=== PATIENT | male | born 1935 | race Caucasian/White ===

== ENCOUNTER 2016-10-13 18:05 | Inpatient (IN) | payer OTHER, MEDICARE ==
[2016-10-13] MEDS ORDERED: NS 1,000 ML IV ONE (18:13)
--- NOTE | 2016-10-13 18:16 | EDPHY ---
H & P Time Seen by Provider: 10/13/16 18:10 HPI/ROS: Chief complaint. Altered mental status HPI. 80-year-old male here by EMS after a welfare check was performed by [employer]. Apparently the patient had not been seen or talked to for 4 days. The police report no signs of forced entry. Television was on. The patient was lying on the floor. He is not responsive to verbal stimuli. He does not speak. Apparently he speaks with son each day and the son had not heard from him in several days so called [employer] ROS--unable as the patient does not speak Past Medical/Surgical History: Past medical history is gleaned from his old chart which shows coronary artery disease, aortic valve replacement, mitral valve replaced air repair, atrial fibrillation, diabetes, hypertension, dyslipidemia, hernia repair, sleep apnea, carotid end arterectomy Social History: Obtained from old chart and apparently the patient had been but there is no family with him so he may well be . Does not sound like he smokes cigarettes or drinks much alcohol from his old record Physical Exam: General Appearance: Awake, nonverbal male moderate distress. Vitals are stable Eyes: Pupils equal and round no pallor or injection. ENT, dry mucous membranes Respiratory: No retractions. Rales on the right Cardiovascular: Irregularly irregular rate and rhythm Gastrointestinal: Abdomen is soft and nontender, no masses, bowel sounds normal. Neurological: Patient has some tail board worker strength to both hands. Moves feet spontaneously. Responds to questions with nonsensical replies Skin: Warm and dry, no rashes. Musculoskeletal: Neck is restrained per EMS Extremities some range of motion of all extremities Psychiatric: Patient is nonverbal Constitutional: Initial Vital Signs Heart Rate 87 10/13/16 18:21 Respiratory Rate 16 10/13/16 18:21 Blood Pressure 159/104 H 10/13/16 18:21 O2 Sat (%) 96 10/13/16 18:21 O2 Delivery Mode Nasal Cannula O2 (L/minute) 4 Allergies/Adverse Reactions: doxazosin mesylate [From Cardura] Allergy (Verified 10/13/16 19:44) PALPITATIONS Sulfa (Sulfonamide Antibiotics) Allergy (Verified 10/13/16 19:44) GI UPSET zolpidem tartrate [From Ambien] Allergy (Verified 11/18/12 10:19) RASH/HIVES Medical Decision Making - Diagnostics EKG Interpretation: EKG interpreted by me shows atrial fibrillation with normal axis. QRS is is normal there is ST elevationV2 and V3. Rate is 84 Imaging: Noncontrast CT head shows a subacute left middle cerebral artery infarct consistent with 4-day-old. There is some overlying hemorrhages well. Cervical spine shows degeneration but no trauma One-view chest x-ray shows probable aspiration pneumonia Procedures: IV normal saline, monitor ED Course/Re-evaluation: Consult with and discussion with Dr. Rangel, hospitalist. We agree to reverse some of the Coumadin and the patient is given IV vitamin K and 1 unit of FFP Consult and discussion with Dr. Villegas, neurosurgery Consult and discussion with Neurology Son arrives from [place] and I reviewed the findings a imaging studies , treatment plan with the son Patient is given a 2nd L of saline. Differential Diagnosis: I believe the likely this started as a ischemic CVA [address] is consistent with a subacute left middle cerebral artery infarct. There is now secondary hemorrhage. Minimal mass effect. It appears the patient has an aspiration pneumonia. He has positive troponin and elevated CK suggestive of rhabdomyolysis. Critical Care Time: critical care time exclusive of procedures 45 minutes - Data Points Laboratory Results: Laboratory Results 10/13/16 18:21 10/13/16 18:21 10/13/16 10/13/16 10/13/16 19:00 18:21 18:11 WBC 9.30 10^3/uL (3.80-9.50) RBC 6.47 H 10^6/uL (4.40-6.38) Hgb 21.6 H* g/dL (13.7-17.5) POC Hgb 22.4 H* gm/dL (14.5-17.3) Hct 63.0 H* % (40.0-51.0) POC Hct 66 H* % (42.8-50.6) MCV 97.4 fL (81.5-99.8) MCH 33.4 pg (27.9-34.1) MCHC 34.3 g/dL (32.4-36.7) RDW 16.3 H % (11.5-15.2) Plt Count 126 L 10^3/uL (150-400) MPV 10.7 fL (8.7-11.7) Neut % (Auto) 69.2 % (39.3-74.2) Lymph % (Auto) 15.5 % (15.0-45.0) [place] % (Auto) 13.9 H % (4.5-13.0) Eos % (Auto) 0.8 % (0.6-7.6) Baso % (Auto) 0.4 % (0.3-1.7) Nucleat RBC Rel Count 0.0 % (0.0-0.2) Absolute Neuts (auto) 6.44 10^3/uL (1.70-6.50) Absolute Lymphs (auto) 1.44 10^3/uL (1.00-3.00) Absolute Monos (auto) 1.29 H 10^3/uL (0.30-0.80) Absolute Eos (auto) 0.07 10^3/uL (0.03-0.40) Absolute Basos (auto) 0.04 10^3/uL (0.02-0.10) Absolute Nucleated RBC 0.00 10^3/uL (0-0.01) Immature Gran % 0.2 % (0.0-1.1) Immature Gran # 0.02 10^3/uL (0.00-0.10) PT 22.3 H SEC (12.0-15.0) INR 1.94 H (0.83-1.16) APTT 45.9 H SEC (23.0-38.0) POC Sodium 146 H mEq/L (134-144) Sodium 144 mEq/L (134-144) POC Potassium 4.0 mEq/L (3.3-5.0) Potassium 4.4 mEq/L (3.5-5.2) POC Chloride 101 mEq/L (96-108) Chloride 100 mEq/L (97-110) Carbon Dioxide 29 mEq/l (22-31) Anion Gap 15 mEq/L (8-16) POC BUN 12 mg/dL (7-23) BUN 11 mg/dL (7-23) Creatinine 0.6 L mg/dL (0.7-1.3) POC Creatinine 0.7 L mg/dL (0.8-1.5) Estimated GFR > 60 Glucose 106 H mg/dL (70-100) POC Glucose 112 H mg/dL (70-100) Calcium 9.5 mg/dL (8.5-10.4) Creatine Kinase 1061 H IU/L (0-224) CK-MB (CK-2) Fraction 16.90 H ng/mL (0-4.55) CK-MB (CK-2) % 1.6 % (0.0-4.0) Creatine Kinase Interp NEGATIVE (NEGATIVE) Troponin I 0.045 H ng/mL (0-0.034) NT-Pro-B Natriuret Pep 1930 H pg/mL (0-450) Medications Given: Discontinued Medications Sodium Chloride (Ns) 1,000 mls @ 0 mls/hr IV EDNOW ONE PRN Reason: Wide Open Stop: 10/13/16 18:14 Last Admin: 10/13/16 18:37 Dose: 1,000 mls Point of Care Test Results: 10/13/16 18:11 POC Sodium 146 H POC Potassium 4.0 POC Chloride 101 POC BUN 12 POC Creatinine 0.7 L POC Glucose 112 H Departure - Departure Disposition: [facility] Inpatient Acute Clinical Impression: Elevated troponin CVA (cerebral vascular accident) Qualifiers: CVA mechanism: embolism Precerebral and cerebral artery: middle cerebral artery Laterality of affected vessel: left Qualifier Code: (I63.412) Cerebral infarction due to embolism of left middle cerebral artery Aspiration pneumonia Qualifiers: Aspiration pneumonia type: unspecified Laterality: right Rhabdomyolysis Qualifiers: Rhabdomyolysis type: traumatic Encounter type: initial encounter Qualifier Code : (T79.6XXA) Traumatic ischemia of muscle, initial encounter Condition: Critical
--- NOTE | 2016-10-13 18:20 | CPEKG ---
Heart Rate: 84 RR Interval: 714 QRSD Interval: 94 QT Interval: 416 QTC Interval: 492 QRS [place]: 90 T Wave [place]: 219 EKG Severity - ABNORMAL ECG - EKG Impression: ATRIAL FIBRILLATION EKG Impression: LOW VOLTAGE IN FRONTAL LEADS EKG Impression: CONSIDER ANTEROSEPTAL INFARCT EKG Impression: NONSPECIFIC T ABNORMALITIES, DIFFUSE LEADS EKG Impression: BORDERLINE PROLONGED QT INTERVAL Electronically Signed By: Raj Gupta 13-Oct-2016 21:14:22
[2016-10-13 18:29] LABS: % IMMATURE GRANULYOCYTES 0.2 % (0.0-1.1); ABSOLUTE IMMATURE GRANULOCYTES 0.02 10^3/uL (0.00-0.10); ADD DIFF? NO; ADD MORPH? NO; ADD SCAN? NO; ATYPICAL LYMPHOCYTE FLAG 10 (0-99); FRAGMENT RBC FLAG 0 (0-99); LEFT SHIFT FLG 0 (0-99); LIPEMIA HEMOLYSIS FLAG 90 (0-99); MEAN CELL HEMOGLOBIN 33.4 pg (27.9-34.1); MEAN CELL HEMOGLOBIN CONCENTR. 34.3 g/dL (32.4-36.7); MEAN CELL VOLUME 97.4 fL (81.5-99.8); MEAN PLATELET VOLUME 10.7 fL (8.7-11.7); PLATELET CLUMPS FLAG 0 (0-99); PLATELET COUNT 126 10^3/uL (150-400); RED BLOOD CELL COUNT 6.47 10^6/uL (4.40-6.38); RED CELL DISTRIBUTION WIDTH 16.3 % (11.5-15.2)
[2016-10-13 18:38] LABS: HEMOGLOBIN 21.6 g/dL (13.7-17.5)
[2016-10-13 19:05] LABS: ANION GAP 15 mEq/L (8-16); CALCIUM 9.5 mg/dL (8.5-10.4); CARBON DIOXIDE 29 mEq/l (22-31); CHLORIDE 100 mEq/L (97-110); CREATININE 0.6 mg/dL (0.7-1.3); GLOMERULAR FILTRATION RATE > 60; GLUCOSE 106 mg/dL (70-100); POTASSIUM 4.4 mEq/L (3.5-5.2); SODIUM 144 mEq/L (134-144)
[2016-10-13 19:15] LABS: INR 1.94 (0.83-1.16); PROTIME(PATIENT) 22.3 SEC (12.0-15.0)
[2016-10-13 19:16] LABS: APTT 45.9 SEC (23.0-38.0)
[2016-10-13 19:17] LABS: TROPONIN I 0.045 ng/mL (0-0.034)
--- NOTE | 2016-10-13 19:23 | CT ---
Unenhanced CT Scan of the Brain and Cervical Spine Clinical History: 80-year-old male who was found down at home, and is responsive to pain. A history w as not obtainable otherwise. The patient has been on Coumadin. Rule out acute intracranial or acute c ervical osseous abnormality. Technique: Standard unenhanced axial CT images were acquired from the skull base to the skull vertex, reformatted at 5.00 and 1.50 mm increments, and reviewed at a variety of window/level settings. The DFOV is 25 cm. Subsequently, a multidetector unenhanced helical CT scan was obtained from the level o f the clivus to the caudal margin of T2 with images reformatted at 1.50 mm increments and reviewed in bone, soft tissue, and lung windows. The DFOV is 14.8 cm. Parasagittal and paracoronal reconstructed images of the brain and cervical spine are also provided. A dose reduction protocol was used. Comparison Study: None. Findings: UNENHANCED CT SCAN OF THE BRAIN: There is vasogenic edema with developing encephalomalacia, consisten t with a subacute area of infarction along the left middle cerebral artery territory. Specifically, t here is diminished attenuation involving the left temporal lobe, the left basal ganglia, the left cor carmen radiata, and the subcortical aspect adjacent to left occipital horn. Additionally, there is a rou nded focus of increased attenuation at the head of the left caudate nucleus, measuring 1.3 x 1.6 cm ( transverse diameter) x 1.4 cm (cephalocaudal diameter), most suggestive of an area of hypertensive in traparenchymal hemorrhage. There is effacement of a portion of the lateral aspect of the left frontal horn. There is no significant subfalcine herniation in this patient with rather extensive underlying cerebral cortical atrophy. There are also areas of diminished attenuation in the subgaleal spaces bi laterally, right greater than left, with a Hounsfield unit measurement of 16-22, suggesting some poss ible seromatous material. There is no skull fracture appreciated. There is opacification of the right frontal sinus, with some chronic mucosal thickening in the floor of the left frontal sinus to the le sergo of the frontoethmoidal recesses. There is also chronic mucosal thickening associated with the rig ht and left ethmoids, minimally involving the sphenoid sinus, and also involving the right and left m axillary sinuses. The mastoids are notable for some left-sided inflammatory change, with no osseous d isruption. There is atherosclerotic calcification of the cavernous carotid arteries. The temporomandi bular joints are anatomically-aligned. The zygomatic arches are intact, as are the orbital rims. The craniocervical junction, sella turcica, and calcified pineal gland are unremarkable. Impression: 1. There is a subacute left middle cerebral artery territory infarction. 2. There is focal hemorrhagic infarct involving the head of left caudate nucleus, with some mass effe ct on the lateral margin of the left frontal horn. 3. Suspect bilateral subgaleal seromas. There is no evidence of a subdural hematoma. 4. Advanced senescent features with cerebral cortical atrophy and chronic microvascular ischemic glio sis. 5. Chronic paranasal sinus mucosal thickening, as well as some inflammation of the left mastoids. UNENHANCED CT SCAN OF THE CERVICAL SPINE: There is straightening of the normal cervical lordosis, whi ch may be secondary to recumbent positioning or reflecting some underlying muscle spasm. The vertebra l body heights are maintained. There is trace C4 posterolisthesis above C5, with a dorsal disk osteop hyte complex observed. Ventral traction spurs are noted from C3-C7. There is mild degenerative disk s pace narrowing at C3-C4, C4-C5, C5-C6, and at C6-C7. There is no acute fracture or facet malalignment . The interspinous distances are appropriate. The craniocervical junction appears normal. There is so me degenerative osseous hypertrophy involving C1 with some narrowing of the predental space and calci fication of the posterior alar ligament. This slightly effaces the ventral thecal sac, however, does not result in significant canal stenosis. The visualized prevertebral soft tissues are normal. There appears to be some pleural fluid posteriorly near the left lung apex with a Hounsfield unit measureme nt of -19. At the C2-C3 level, there is some disk calcification. There is a mild degree of facet hypertrophy. Th ere is no central canal or neural foraminal stenosis. At the C3-C4 level, there is mild degenerative disk space narrowing with some partial disk calcificat ion. There is facet hypertrophy and uncovertebral osteophyte formation, particularly on the right jannette e, resulting in moderate right neural foraminal stenosis. The central canal and left neural foramen a re relatively patent. At the C4-C5 level, there is degenerative disk space narrowing. There is a dorsal disk osteophyte com plex resulting in mild central canal stenosis. Facet hypertrophy is noted, right greater than left, a nd there is a mild degree of left neural foraminal stenosis. At the C5-C6 level, there is degenerative disk space narrowing, facet hypertrophy, and uncovertebral osteophyte formation, resulting in moderate right and [id number]-wsdcakfy left neural foraminal stenosis . There is patency of the central canal. At the C6-C7 level, there is degenerative disk space narrowing of mild degree, with ventral and dorsa l traction osteophytes. There is mild central canal stenosis and uncovertebral osteophyte formation, resulting in moderate left and mild right neural foraminal stenosis. The C7-T1 level is notable only for some mild facet hypertrophy. There is some mild broad-based circu mferential disk bulging, resulting in mild central canal stenosis. The neural foramina are relatively patent. Impression: Multilevel degenerative changes, as above-detailed, with no acute cervical osseous abnorm ality. If there is further clinical concern regarding the patient's symptoms, MR imaging could be considered , if otherwise not contraindicated. Results were discussed with Dr. Raj Gupta. A test result has been communicated to a licensed care provider and documented in [employer], 6:56:34 PM , 10/13/2016, [employer] Message ID [id number].
[2016-10-13] MEDS ORDERED: ERTAPENEM 1 GM in NS 100 ML IV ONE (19:25)
[2016-10-13] MEDS ORDERED: PHYTONADIONE 10 MG in NS 50 ML IV ONE (19:29)
--- NOTE | 2016-10-13 19:48 | DX ---
Portable AP Upright Chest October 13, 2016 at 7:19 p.m. Clinical History: 80-year-old male on Coumadin, found down and unresponsive with a head CT revealing an intracranial hemorrhage and a left MCA territory infarct. Comparison Study: Chest, dated February 21, 2010. Findings: Oxygen tubing and telemetry monitoring lead lines are present. The cardiac silhouette remai ns enlarged, and there is dense mitral annular calcification. The patient has had prior median sterno destini and an aortic valvuloplasty. There is mural calcification of the aortic knob. Perihilar bronchia l wall thickening and pulmonary vascular congestion suggests some fluid overload and cardiac decompen sation. There is some focal alveolar edema versus a developing infiltrate in the right infrahilar reg ion, and possibly in the left retrocardiac region. Impression: 1. Sequela of prior sternotomy and aortic valvuloplasty with cardiomegaly and pulmonary vascular irais estion. 2. Alveolar edema versus developing pneumonia in the medial lower lung zones.
[2016-10-13 19:54] LABS: CK-MB INTERPRETATION NEGATIVE (NEGATIVE)
[2016-10-13] MEDS ORDERED: HYDROmorphONE/DILAUDID 1 MG/ML SYR IVP PRN (20:04)
[2016-10-13] MEDS ORDERED: ONDANSETRON 4 MG/2 ML VIAL IVP PRN (20:04)
--- NOTE | 2016-10-13 20:09 | NEUROPROG ---
Assessment: Case reviewed via telephone with Dr. Gupta. CT reviewed. Subacute LMCA infarct with a round/well circumscribed left BG hemorrhage ( likely hypertensive given location/morphology) Hourly neurosurveillance Keep SBP < 160 INR goal < 1.5 Functional Plt count > 50k Holding antiplatelet/anticoagulants Keep well hydrated Avoid hypoglycemia - ideal BS 140-180 GI prophylaxis SCDs Seizure precautions - no antiseizure prophylaxis necessary for now Repeat CT head wo tomorrow afternoon Full consult tomorrow Objective: Vital Signs Temp Pulse Resp BP Pulse Ox 87 16 159/104 H 93 10/13/16 18:21 10/13/16 18:21 10/13/16 18:21 10/13/16 19:04 PT 22.3 SEC (12.0-15.0) H 10/13/16 19:00 INR 1.94 (0.83-1.16) H 10/13/16 19:00 Allergies/Adverse Reactions: doxazosin mesylate [From Cardura] Allergy (Verified 10/13/16 19:44) PALPITATIONS Sulfa (Sulfonamide Antibiotics) Allergy (Verified 10/13/16 19:44) GI UPSET zolpidem tartrate [From Ambien] Allergy (Verified 11/18/12 10:19) RASH/HIVES
--- NOTE | 2016-10-13 21:08 | GHP ---
[f rep st] HISTORY AND PHYSICAL DATE OF ADMISSION: 10/13/2016 HISTORY OF PRESENT ILLNESS: The patient is an 80-year-old gentleman with a history of atrial fibrill ation, aortic valve replacement with bovine valve, and coronary artery disease who was brought here b y EMS after their welfare check by the [employer], he had not been seen supposedly for 4 days. The patient was found lying on the floor and unresponsive to verbal stimuli. In the emerge ncy department, a noncontrast head CT was performed showing a subacute left MCA territory infarction, focal hemorrhage involving the head of the left caudate nucleus, some mass effect on the lateral mar gin of the left frontal horn as well as senescent features with cervical cortical atrophy and chronic microvascular ischemic gliosis. When I speak with the patient, he is unable to mouth words but they are indecipherable. I am not alli e if this represents word salad versus a gentleman with severely crusted mouth from being on the grou nd for 4 days. He is unable to name a stethoscope although he attempts to. He is able to follow com mands and squeeze hands demonstrating weakness on the right, but global weakness as well. He appears to deny pain or chest pain or shortness of breath. REVIEW OF SYSTEMS: Complete 10-point review of systems attempted but unable to be achieved given his current mental status. PAST MEDICAL HISTORY: Coronary artery disease status post bypass, aortic valve replacement with biop rosthetic valve, mitral valve with repair, atrial fibrillation, diabetes, hypertension, dyslipidemia, hernia repair, sleep apnea, carotid endarterectomy. SOCIAL HISTORY: He lives alone. He speaks with his son frequently who I believe lives out of town. According to the old record of tobacco use and alcohol use are non-issues. ALLERGIES: Doxazosin, sulfa and Ambien. MEDICATIONS: Unclear at this time, other than warfarin. PHYSICAL EXAM: VITAL SIGNS: He is afebrile. Blood pressure 169/104, pulse 87, breathing 16 times a minute, and 96% on 4 L. GENERAL: In no acute distress. HEENT: His eyes are crusted. He has a lo t of dried stuff in his mouth. NECK: In a hard collar. LUNGS: Clear to auscultation anterolateral ly. HEART: S1 and S2. Not tachycardic. ABDOMEN: Soft, nontender, nondistended. LOWER EXTREMITIE S: Without edema. NEUROLOGIC: Shows 2/5 strength on the right, 3/5 strength on the left. He is ab le to follow commands. He appears to be encephalopathic. I cannot get him to say coherent things. SKIN: Without rash although I have not seen his back. STUDIES: On Labs: Sodium 144, potassium 4.4, chloride 100, bicarb 29, BUN 11, creatinine 0.6, gluco se 106. CK is 1061. Troponin 0.045. BNP is 1930. INR is 1.94. White count is 9, hematocrit is 63 with hemoglobin of 21.6. Platelets are 126. Review of prior hemoglobins show polycythemia in the s ummer of 2016. A noncontrast head CT is as reported in the emergency department. Chest x-ray, interpreted by me, sh ows evidence of prior CABG, likely right lower lobe infiltrate, without pleural effusion. EKG, interpreted by me shows atrial fibrillation at 84 with normal axis and intervals. There are T-w ave inversions in V3 through V4 and even V5. There is no prior EKG available for comparison. A C-spine CT shows degenerative joint disease with no acute osseous abnormality. I discussed the case with Dr. Raj Gupta. ASSESSMENT AND PLAN: An 80-year-old gentleman was found down after apparent large left middle cerebr al artery stroke with hemorrhagic conversion. 1. Stroke: This is likely embolic from atrial fibrillation. He does have a subtherapeutic INR. Th at is given the hemorrhagic conversion, he has reversal of his INR now. He is not a candidate for ly tics for many reasons. For the time being, we will hold his Coumadin, reverse his INR and Neurology will see him in the morning. He will be n.p.o. for the time being. We will do the secondary stroke workup as well. 2. Hemorrhagic conversion. 3. Positive troponin: Will cycle these. He does have a history of coronary disease. EKG is potent ially ischemic, although I suspect that is likely his baseline. 4. Neck in hard collar: His spine can be cleared given that he has normal CT. 5. Code status. He appears to be full, we have incomplete information on him. 6. Coronary artery disease: We will hold aspirin, will cycle his troponin. 7. Intracranial hemorrhage: Neurosurgery have been consulted. They have reviewed the scans, they t hink there is no opportunity for neurosurgical intervention. They will see him in the morning. 8. Aspiration pneumonia. This is almost certainly the cause of his infiltrates. He has been starte d on ertapenem which I will continue. Will have speech therapy see him. 9. Disposition: He is admitted to the ICU. 10. Status: Inpatient status. /[id number]/MODL
[2016-10-13] MEDS ORDERED: ALBUTEROL 3 ML DEYVIAL IH PRN (21:47)
[2016-10-13 22:07] LABS: LACGHOST ORDER
[2016-10-13] MEDS: ERTAPENEM 1 GM in NS 100 ML IV SCH (22:14)
[2016-10-13 23:33] LABS: BACTERIA TRACE /hpf (NONE SEEN); COLOR AMBER; LEUKOCYTE ESTERASE,URINE NEGATIVE (NEGATIVE); MUCUS TRACE /lpf (NONE-1+); NITRITE,URINE NEGATIVE (NEGATIVE)
[2016-10-13 23:46] LABS: TROPONIN I 0.042 ng/mL (0-0.034)
[2016-10-14 00:33] LABS: CK-MB INTERPRETATION NEGATIVE (NEGATIVE)
[2016-10-14] MEDS: NS 1,000 ML IV SCH ×2 (02:25→17:49)
[2016-10-14 04:31] LABS: % IMMATURE GRANULYOCYTES 0.3 % (0.0-1.1); ABSOLUTE IMMATURE GRANULOCYTES 0.02 10^3/uL (0.00-0.10); ADD DIFF? NO; ADD MORPH? NO; ADD SCAN? NO; ATYPICAL LYMPHOCYTE FLAG 0 (0-99); FRAGMENT RBC FLAG 0 (0-99); HEMATOCRIT 45.6 % (40.0-51.0); HEMOGLOBIN 15.3 g/dL (13.7-17.5); LEFT SHIFT FLG 0 (0-99); LIPEMIA HEMOLYSIS FLAG 80 (0-99); MEAN CELL HEMOGLOBIN 32.6 pg (27.9-34.1); MEAN CELL HEMOGLOBIN CONCENTR. 33.6 g/dL (32.4-36.7); MEAN CELL VOLUME 97.2 fL (81.5-99.8); PLATELET CLUMPS FLAG 20 (0-99); PLATELET COUNT 101 10^3/uL (150-400); RED BLOOD CELL COUNT 4.69 10^6/uL (4.40-6.38); RED CELL DISTRIBUTION WIDTH 15.1 % (11.5-15.2)
[2016-10-14 04:36] LABS: INR 1.57 (0.83-1.16); PROTIME(PATIENT) 18.8 SEC (12.0-15.0)
[2016-10-14 04:44] LABS: ANION GAP 7 mEq/L (8-16); CALCIUM 7.7 mg/dL (8.5-10.4); CARBON DIOXIDE 27 mEq/l (22-31); CHLORIDE 109 mEq/L (97-110); CHOLESTEROL 70 mg/dL (140-220); CHOLESTEROL/HDL RATIO 3.04 RATIO (1.00-4.97); CREATININE 0.6 mg/dL (0.7-1.3); GLOMERULAR FILTRATION RATE > 60; GLUCOSE 83 mg/dL (70-100); HIGH DENSITY LIPOPROTEIN 23 mg/dL (40-65); LDL/HDL RATIO 1.57 RATIO (1.00-3.64); LOW DENSITY LIPOPROTEIN 36 mg/dL (80-100); NON-HIGH DENSITY LIPOPROTEIN 47 mg/dL (90-129); POTASSIUM 3.9 mEq/L (3.5-5.2); SODIUM 143 mEq/L (134-144); TRIGLYCERIDE 59 mg/dL (40-150); VERY LOW DENSITY LIPOPROTEINS 11 mg/dL (8-25)
[2016-10-14 04:54] LABS: TROPONIN I 0.052 ng/mL (0-0.034)
[2016-10-14 05:14] LABS: CK-MB INTERPRETATION NEGATIVE (NEGATIVE)
[2016-10-14 05:21] LABS: CREATINE KINASE-MB FRACTION 6.25 ng/mL (0-3.19)
--- NOTE | 2016-10-14 08:44 | CT ---
CT Scan of the Head (Without Contrast) Clinical Indications: 80-year-old male inpatient admitted last evening with a subacute left MCA tayler tory infarct and hemorrhage at the left head of the caudate nucleus, presenting for follow-up. Technique: Axial CT images were acquired from the foramen magnum through the skull vertex without in travenous contrast. Soft tissue, subdural, and bone windows were reviewed on the computer workstatio n. Images were reformatted at 5.00 and 1.50 mm increments, and are reformatted in sagittal and coron al planes. DFOV is 25.0 cm. Dose reduction techniques were utilized. Comparison Study: Unenhanced CT scan, dated October 13, 2016 at 6:29 p.m. Findings: Again noted is increased attenuation consistent with hemorrhage at the head of the left cau date nucleus. The appearance is stable to less hyperdense, and there is extensive vasogenic edema and /or developing encephalomalacia along the left middle cerebral artery territory involving the left te mporal lobe, left basal ganglia, and the left salgado radiata with some slight mass effect on portions of the left lateral ventricle, although no subfalcine herniation. There is extensive underlying cere bral cortical atrophy with chronic microvascular ischemic gliosis. Paranasal sinus mucosal thickening is once again identified, similar in distribution involving the maxillary, ethmoid, sphenoid, and fr ontal sinuses with complete opacification of the right frontal sinus. There is also some inflammation associated with the left mastoid. There is atherosclerotic calcification of the cavernous carotid ar teries and the basilar artery. Diminished attenuation in the subgaleal spaces is less conspicuous jenni n on the previous study. Impression: The intracranial appearance of the brain is relatively stable from last evening's study, with evidence of some subacute hemorrhage at the head of left caudate nucleus and a subacute left mid dle cerebral artery territory infarct.
--- NOTE | 2016-10-14 09:24 | ECHO ---
[id number] + + [address] : : [place] [address] : : [phone] + + Adult Echocardiographic Report + ---+ :Name: CARMENKenna LEHMAN Date: 10/14/2016 07:28 AM : : Hospital Admission Number: [id number] Location: 242: :: 1935 Gender: Male : :Age: 80 yrs Race: WH Weight: 200 lb : :Reason For Study: CVA/found down : :History: CABG/AVR/MV repair : + ---+ MMode/2D Measurements & Calculations IVSd: 0.90 cm LVIDd: 4.5 cm FS: 52.1 % Ao root diam: 3.3 cm LVPWd: 0.80 cm LVIDs: 2.1 cm EDV(Teich): 91.4 ml LA dimension: 4.3 cm ESV(Teich): 15.2 ml EF(Teich): 83.3 % Normal Measurement Values: + + :LVIDd (3.5-5.7cm) IVSd (0.6-1.1cm) LVPWd (0.6-1.1cm) Aortic Root (2.0-3.7cm)Left Atrium (1.5-4.0cm): :LV Vol(d) (76-115ml) LV Vol(s) (29-48ml) Ejec Fraction (50-65%)PV Fadi (0.6- 1.2m/s) TV Fadi (0.4-1.0m/s) : :MV E Fadi (0.8-1.0m/s)MV A Fadi (0.3-1.0m/s)LVOT Fadi (0.7-1.2m/s) Asc Ao Fadi ( 0.9-1.8m/s) : + + Doppler Measurements & Calculations MV E max fadi: MV V2 max: MV P1/2t max fadi: Ao mean P.2 cm/sec 248.9 cm/sec 243.9 cm/sec 11.3 mmHg MV A max fadi: MV max PG: MV P1/2t: 145.4 msec Ao V2 mean: 167.1 cm/sec 24.8 mmHg MVA(P1/2t): 1.5 cm2 155.4 cm/sec MV E/A: 1.4 MV V2 mean: MV dec slope: Ao V2 VTI: 154.0 cm/sec 491.2 cm/sec2 49.8 cm MV mean P.7 mmHg MV V2 VTI: 89.7 cm TR max fadi: 395.9 cm/sec TR max P.7 mmHg RAP systole: 10.0 mmHg RVSP(TR): 72.7 mmHg Left Ventricle The left ventricle is normal in size. Mild concentric LVH noted. Normal to hyperdynamic LV systolic function with LVEF 65-70%. Septal motion is consistent with post-operative state. Right Ventricle A moderator band is seen in the right ventricle. Mild to moderate RV enlargement with mildly reduced RV systolic function. Atria The left atrium is moderately dilated. The right atrium is moderately dilated. The interatrial septum is intact with no evidence for an atrial septal defect. Mitral Valve MV mean PG is 10mmHG. Mild-moderate MS noted. There is mild mitral regurgitation. An annuloplasty ring is noted in the mitral position. Tricuspid Valve Normal tricuspid valve. There is moderate to severe tricuspid regurgitation. Right ventricular systolic pressure is 73mmHg. Moderate to severe pulmonary HTN noted. Aortic Valve No AI noted. There is a bioprosthetic aortic valve. AV max PG is 21mmHG. AV mean PG is 11mmHG. Pulmonic Valve The pulmonic valve is normal in structure and function. Mild PI noted. Great Vessels The aortic root is normal size. Pericardium/Pleural Trivial to mild pericardial effusion present with no tamponade physiology. Left pleural effusion. Conclusion A complete two-dimensional transthoracic echocardiogram was performed (2D, M-mode, Doppler and color flow Doppler). There is no obvious source of embolus identified. If one is highly clinically suspected, then transesophageal echocardiography should be considered. 1)Normal to hyperdynamic LV systolic function with a LVEF of 65-70%. 2)Mild concentricl LVH noted. 3)Mild-moderate RV enlargement with mildly reduced RV systolic function. 4)Moderate bi-atrial enlargement. 5)Normal functioning bioprosthetic AVR with no AI. 6)MV s/p surgical annualr ring with mild-moderate MS with mean gradient of 10mmHg and mild MR. 7)Moderate to severe TR with estimated moderate to severe pulmonary HTN (PAS 73mmHg). 8)Left pleural effusion. 9)Trivial to mild pericardial effusion with no tamponade. Final Reading Physician: Hayley Montanez signed on 10/14/2016 09:23 AM Ordering Physician: Abdi Rangel Performed By: Jasmyne Mane, MARSHACS
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
--- NOTE | 2016-10-14 10:12 | HOSPPROG ---
Hospitalist Progress Note Assessment/Plan: DIAGNOSIS: # UNRESPONSIVE # ACUTE ISCHEMIC CVA # INTRACRANIAL HEMORRHAGE # CHRONIC STABLE A FIB ON COUMADIN # RHABDOMYOLYSIS FROM BEING DOWN ON FLOOR # MULTIPLE STAGE I DECUBITUS SORES FROM BEING DOWN AT HOME # WENCKEBACH TYPE 2 HEART BLOCK PLANS: -will need to review with neurosurgery and neurology whether it is safe to at this time use prophylactic aspirin and dvt prophylaxis -continue manager monitoring -no full-dose anticoagulation at this time due to stroke with intracranial hemorrhage -close attention to blood pressure control -Check lipid panel -NPO with IV hydration for now -Dr. Jimenez and I have discussed in detail with his family the limited prognosis for this patient. However as we do not know the timing of onset of his stroke is difficult to tell where we are in the time line and to come to a prognostic assessment at this time. We will need to follow him for a at least a couple more days to see if there is any tendency toward recovery. I reviewed this patient's case in detail today with Dr. Charly Jimenez and gilbert Villegas, and also seen the patient on multidisciplinary rounds today. SUBJECTIVE: Patient is currently comatose and so no symptom assessment is available OBJECTIVE Vitals reviewed: Stable without fever ekg monitor tech, my personal review: Sinus rhythm with intermittent Wenckebach type 2 heart block. Exam: Comatose. The only response I get from him is withdrawal his hands with noxious stimulus but the fingernails. He does not respond to sternal rub. He does move all extremities. There is nothing that looks like seizure. Pupils round equal and reactive. skin warm dry color ok resps not labored lungs clear BSs heart regular abd soft nondistended nontender, bowel sounds present limbs warm, no edema iv site ok CT scan of head today in follow-up, my personal review of the images: There is significant ischemic stroke in the way of and he is were hypodensity in the left cerebral hemisphere. The area of hemorrhage noted on the initial CT is unchanged on this repeat CT. There is no significant shift. Objective: Vital Signs Temp Pulse Resp BP Pulse Ox 37.2 C 75 17 114/73 99 10/14/16 04:00 10/14/16 06:00 10/14/16 06:00 10/14/16 06:00 10/14/16 06:00 Laboratory Results 10/14/16 04:20 10/14/16 04:15 10/13/16 10/14/16 10/15/16 06:59 06:59 06:59 Intake Total 3750 Output Total 350 Balance 3400 PT 18.8 SEC (12.0-15.0) H 10/14/16 04:15 INR 1.57 (0.83-1.16) H 10/14/16 04:15 ICD10 Worksheet Patient Problems: Problems Problem Status Diagnosed Aspiration pneumonia Acute CVA (cerebral vascular accident) Acute Elevated troponin Acute Rhabdomyolysis Acute
[2016-10-14] MEDS: ALBUTEROL 3 ML DEYVIAL IH SCH ×3 (11:40→21:19)
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
--- NOTE | 2016-10-14 13:04 | PDCONSULT ---
Branch Lead Note: HOSPITAL NEUROLOGY CONSULT REQUESTING: Petey Valadez MD REASON: stroke HPI: This is an 80-year-old right-handed gentleman with a history of hypertension, hyperlipidemia, diabetes, CAD, atrial fibrillation who presented to our emergency department yesterday after being found down in his home. Patient is followed by a PDS and they had not heard from him in [address] were summoned to the patient's house and on the day of presentation they found him on the floor unresponsive in his home. He was brought to our Emergency Department and a non contrasted head CT revealed a large area of cytotoxic edema in the left MCA territory consistent with a subacute ischemic stroke. There is also a very well-circumscribed hyperdensity in the left basal ganglia consistent with a subacute hemorrhage. Patient remained unresponsive and was admitted for further stabilization and workup. He was given FFP and vitamin K in ED to reverse his INR given the intracranial hemorrhage. On the floor, he has remained unresponsive and not following commands. Son and daughter at bedside. ROS: Unobtainable from patient due to his unresponsive state ALLERGIES AND MEDS: As recorded in the EMR - reviewed and reconciled PFSH: As per the intake H&P by Dr. Valadez from 10/13/16 EXAM: GEN: WDWN man laying in bed, eyes closed, NAD HEENT: NCAT, sclera anicteric, conjunctiva not injected, MMD NECK: supple, nontender, no meningismus CV: irreg irreg, s1 s2, grade 3 systolic murmur best a RUSB NEURO: MS: eyes closed, opens briefly to nox stim, no verbal output, does not follow commands, unable to assess other higher cortical function due to coma CN: pupils 3mm round reactive. No blink to threat. Primary gaze centered. No VORs, trace spontaneous horizontal eye movements seem symmetric. Corneals intact and grimaces to nox stim of the face. Right lower facial droop apparent. MOTOR: normal bulk, paratonic throughout. He does not move spontaneously SENSORY: localizes with BUEs and withdraws in the BLEs to nox stim REFLEX: plantar extensor right, equivocal left. No clonus. DTRs 3/4 COORD/GAIT: unable to assess DATA: Labs reviewed in EMR CT head wo reviewed - left inferior MCA subacute infarct with cytotoxic edema. Left caudate subacute hemorrhage with surrounding vasogenic edema a mild mass effect on the left lateral ventricle. TTE: preserved EF, no masses, LVH/RVH, dilated atria IMPRESSION AND RECOMMENDATIONS: // SUBACUTE LMCA ISCHEMIC STROKE - CARDIOEMBOLIC // SUBACUTE LEFT CAUDATE HEMORRHAGE - LIKELY HYPERTENSIVE // COMA // RHABDOMYOLYSIS // ASPIRATION PNA // HTN // HLD // DM - UNKNOWN CONTROL // AFIB Patient found down at home with subacute LMCA stroke with superimposed left caudate hemorrhage, likely hypertensive in origin. Stroke is likely cardioembolic. He had clear changes of ischemia on his CT and remote established last known well, so not a candidate for any thrombolytic or intervention. Coma is likely explained by his caudate hemorrhage (which can result in reduced LOC, reduced attention/abulia) in addition to his PNA and large hemispheric stroke. At this point, discussion is ongoing with family regarding goals of care going forward. We discussed how he will likely be left with some degree of aphasia, visual field loss, weakness, cognitive impairment, dysphagia. This places him at risk for further aspiration, DVT, malnutrition and other medical complications. Son and daughter are at bedside. POA is son-in-law. Family is favoring DNR and comfort measures at this time, but will finalize a decision with EDER. I recommend a discussion with our Palliative Care/Hospice colleagues. In the meantime, continue with supportive measures per below: - close neurosurveillance - keep SBP < 160 - hold therapeutic antiplatelets/anticoagulants - INR goal < 1.5 - functional platelet count > 50k - avoid hypoglycemia with ideal BS goal 140-180 - keep normothermic - seizure precautions - no antiseizure drug prophylaxis at this time - keep well hydrated - SCDs - can consider DVT chemoprophylaxis with heparin 5000 units BID in 48hours - GI prophylaxis - aspiration precautions - recommend palliative/hospice consultation - family to discuss goals of care with POA today - Dr. Jarrett to assume care of the neurology service tomorrow Patient critically ill with ischemic stroke, intracranial hemorrhage and comatose state, at high risk for clinical deterioration. 55 mins CC time in direct patient care activities on the floor Temp Pulse Resp BP Pulse Ox 37.2 C 75 17 114/73 99 10/14/16 04:00 10/14/16 06:00 10/14/16 06:00 10/14/16 06:00 10/14/16 06:00 O2 (L/minute) 4 LABORATORY 10/14/16 10/14/16 10/14/16 04:20 04:15 00:05 WBC 7.19 10^3/uL (3.80-9.50) RBC 4.69 10^6/uL (4.40-6.38) Hgb 15.3 g/dL (13.7-17.5) POC Hgb Hct 45.6 D % (40.0-51.0) POC Hct MCV 97.2 fL (81.5-99.8) MCH 32.6 pg (27.9-34.1) MCHC 33.6 g/dL (32.4-36.7) RDW 15.1 % (11.5-15.2) Plt Count 101 L 10^3/uL (150-400) MPV 11.0 fL (8.7-11.7) Neut % (Auto) 64.9 % (39.3-74.2) Lymph % (Auto) 15.3 % (15.0-45.0) Whitley % (Auto) 16.6 H % (4.5-13.0) Eos % (Auto) 2.5 % (0.6-7.6) Baso % (Auto) 0.4 % (0.3-1.7) Nucleat RBC Rel Count 0.0 % (0.0-0.2) Absolute Neuts (auto) 4.67 10^3/uL (1.70-6.50) Absolute Lymphs (auto) 1.10 10^3/uL (1.00-3.00) Absolute Monos (auto) 1.19 H 10^3/uL (0.30-0.80) Absolute Eos (auto) 0.18 10^3/uL (0.03-0.40) Absolute Basos (auto) 0.03 10^3/uL (0.02-0.10) Absolute Nucleated RBC 0.00 10^3/uL (0-0.01) Immature Gran % 0.3 % (0.0-1.1) Immature Gran # 0.02 10^3/uL (0.00-0.10) PT 18.8 H SEC (12.0-15.0) INR 1.57 H (0.83-1.16) APTT VBG Lactic Acid 2.4 H mmol/L (0.7-2.1) POC Sodium Sodium 143 mEq/L (134-144) POC Potassium Potassium 3.9 mEq/L (3.5-5.2) POC Chloride Chloride 109 mEq/L (97-110) Carbon Dioxide 27 mEq/l (22-31) Anion Gap 7 mEq/L (8-16) POC BUN BUN 11 mg/dL (7-23) Creatinine 0.6 L mg/dL (0.7-1.3) POC Creatinine Estimated GFR > 60 Glucose 83 mg/dL (70-100) POC Glucose Calcium 7.7 L D mg/dL (8.5-10.4) Creatine Kinase 516 H IU/L (0-224) CK-MB (CK-2) Fraction 6.25 H ng/mL (0-3.19) CK-MB (CK-2) % 1.2 % (0.0-4.0) Creatine Kinase Interp NEGATIVE (NEGATIVE) Troponin I 0.052 H ng/mL (0-0.034) NT-Pro-B Natriuret Pep Triglycerides 59 mg/dL (40-150) Cholesterol 70 L mg/dL (140-220) Cholesterol Risk Factr 0.5 (0.2-1.0) LDL Cholesterol, Calc 36 L mg/dL (80-100) LDL Risk Factor 0.8 (0.2-1.0) VLDL Cholesterol 11 mg/dL (8-25) Non-HDL Cholesterol 47 L mg/dL (90-129) HDL Cholesterol 23 L mg/dL (40-65) LDL/HDL Ratio 1.57 RATIO (1.00-3.64) Cholesterol/HDL Ratio 3.04 RATIO (1.00-4.97) Urine Color Urine Appearance Urine pH Ur Specific [place] Urine Protein Urine Ketones Urine Blood Urine Nitrate Urine Bilirubin Urine Urobilinogen Ur Leukocyte Esterase Urine RBC Urine WBC Ur Epithelial Cells Urine Bacteria Urine Mucus Urine Glucose Patient ABO/Rh 10/13/16 10/13/16 10/13/16 22:55 22:50 21:00 WBC RBC Hgb POC Hgb Hct POC Hct MCV MCH MCHC RDW Plt Count MPV Neut % (Auto) Lymph % (Auto) Whitley % (Auto) Eos % (Auto) Baso % (Auto) Nucleat RBC Rel Count Absolute Neuts (auto) Absolute Lymphs (auto) Absolute Monos (auto) Absolute Eos (auto) Absolute Basos (auto) Absolute Nucleated RBC Immature Gran % Immature Gran # PT INR APTT VBG Lactic Acid 3.3 H mmol/L (0.7-2.1) POC Sodium Sodium POC Potassium Potassium POC Chloride Chloride Carbon Dioxide Anion Gap POC BUN BUN Creatinine POC Creatinine Estimated GFR Glucose POC Glucose Calcium Creatine Kinase 804 H IU/L (0-224) CK-MB (CK-2) Fraction 10.90 H ng/mL (0-3.19) CK-MB (CK-2) % 1.4 % (0.0-4.0) Creatine Kinase Interp NEGATIVE (NEGATIVE) Troponin I 0.042 H ng/mL (0-0.034) NT-Pro-B Natriuret Pep Triglycerides Cholesterol Cholesterol Risk Factr LDL Cholesterol, Calc LDL Risk Factor VLDL Cholesterol Non-HDL Cholesterol HDL Cholesterol LDL/HDL Ratio Cholesterol/HDL Ratio Urine Color ADRIENNE Urine Appearance CLEAR Urine pH 5.0 (5.0-7.5) Ur Specific [place] 1.018 (1.002-1.030) Urine Protein NEGATIVE (NEGATIVE) Urine Ketones 1+ H (NEGATIVE) Urine Blood 1+ H (NEGATIVE) Urine Nitrate NEGATIVE (NEGATIVE) Urine Bilirubin NEGATIVE (NEGATIVE) Urine Urobilinogen 4.0 H EU (0.2-1.0) Ur Leukocyte Esterase NEGATIVE (NEGATIVE) Urine RBC 10-15 H /hpf (0-3) Urine WBC 3-5 H /hpf (0-3) Ur Epithelial Cells TRACE /lpf (NONE-1+) Urine Bacteria TRACE H /hpf (NONE SEEN) Urine Mucus TRACE /lpf (NONE-1+) Urine Glucose NEGATIVE (NEGATIVE) Patient ABO/Rh A POSITIVE 10/13/16 10/13/16 10/13/16 19:00 18:21 18:11 WBC 9.30 10^3/uL (3.80-9.50) RBC 6.47 H 10^6/uL (4.40-6.38) Hgb 21.6 H* g/dL (13.7-17.5) POC Hgb 22.4 H* gm/dL (14.5-17.3) Hct 63.0 H* % (40.0-51.0) POC Hct 66 H* % (42.8-50.6) MCV 97.4 fL (81.5-99.8) MCH 33.4 pg (27.9-34.1) MCHC 34.3 g/dL (32.4-36.7) RDW 16.3 H % (11.5-15.2) Plt Count 126 L 10^3/uL (150-400) MPV 10.7 fL (8.7-11.7) Neut % (Auto) 69.2 % (39.3-74.2) Lymph % (Auto) 15.5 % (15.0-45.0) Whitley % (Auto) 13.9 H % (4.5-13.0) Eos % (Auto) 0.8 % (0.6-7.6) Baso % (Auto) 0.4 % (0.3-1.7) Nucleat RBC Rel Count 0.0 % (0.0-0.2) Absolute Neuts (auto) 6.44 10^3/uL (1.70-6.50) Absolute Lymphs (auto) 1.44 10^3/uL (1.00-3.00) Absolute Monos (auto) 1.29 H 10^3/uL (0.30-0.80) Absolute Eos (auto) 0.07 10^3/uL (0.03-0.40) Absolute Basos (auto) 0.04 10^3/uL (0.02-0.10) Absolute Nucleated RBC 0.00 10^3/uL (0-0.01) Immature Gran % 0.2 % (0.0-1.1) Immature Gran # 0.02 10^3/uL (0.00-0.10) PT 22.3 H SEC (12.0-15.0) INR 1.94 H (0.83-1.16) APTT 45.9 H SEC (23.0-38.0) VBG Lactic Acid POC Sodium 146 H mEq/L (134-144) Sodium 144 mEq/L (134-144) POC Potassium 4.0 mEq/L (3.3-5.0) Potassium 4.4 mEq/L (3.5-5.2) POC Chloride 101 mEq/L (96-108) Chloride 100 mEq/L (97-110) Carbon Dioxide 29 mEq/l (22-31) Anion Gap 15 mEq/L (8-16) POC BUN 12 mg/dL (7-23) BUN 11 mg/dL (7-23) Creatinine 0.6 L mg/dL (0.7-1.3) POC Creatinine 0.7 L mg/dL (0.8-1.5) Estimated GFR > 60 Glucose 106 H mg/dL (70-100) POC Glucose 112 H mg/dL (70-100) Calcium 9.5 mg/dL (8.5-10.4) Creatine Kinase 1061 H IU/L (0-224) CK-MB (CK-2) Fraction 16.90 H ng/mL (0-4.55) CK-MB (CK-2) % 1.6 % (0.0-4.0) Creatine Kinase Interp NEGATIVE (NEGATIVE) Troponin I 0.045 H ng/mL (0-0.034) NT-Pro-B Natriuret Pep 1930 H pg/mL (0-450) Triglycerides Cholesterol Cholesterol Risk Factr LDL Cholesterol, Calc LDL Risk Factor VLDL Cholesterol Non-HDL Cholesterol HDL Cholesterol LDL/HDL Ratio Cholesterol/HDL Ratio Urine Color Urine Appearance Urine pH Ur Specific [place] Urine Protein Urine Ketones Urine Blood Urine Nitrate Urine Bilirubin Urine Urobilinogen Ur Leukocyte Esterase Urine RBC Urine WBC Ur Epithelial Cells Urine Bacteria Urine Mucus Urine Glucose Patient ABO/Rh
--- NOTE | 2016-10-14 15:58 | WOCRNPDOC ---
WOCRN Advanced Assessment Note - Skin Integrity Problem, Advanced Assess Sacrum Pressure Injury Dressing Type: Allevyn Life Dressing Description: Clean/Dry, Intact Integumentary Issue Intervention: Visualized Under Dressing Ada Wound Tissue: Erythema, Non-blanching Ada Wound Swelling: Mild Wound Bed Color: Joaquin, Red Site Measurement - Head-to-Toe Length X Width X Depth (cm): 7 x 12 x 0 Pressure Injury Stage: Stage 1 Pressure Injury Present on Admit: Yes Skin Integrity Problem Comment: JOSEFA Doe, present, assisting: Turned patient to left side to assess and off-load pressure sites. Re-secured existing Allevyn dressing after assessing. Right Hip Pressure Injury Dressing Type: Allevyn Life Dressing Description: Clean/Dry, Intact Exudate Amount: Scant Exudate Color: Clear Exudate Characteristic(s): Clear Integumentary Issue Intervention: Visualized Under Dressing Ada Wound Tissue: Erythema, Non-blanching Ada Wound Swelling: Mild Wound Bed Color: Purple, Red Wound Bed Constitution: Smooth Tissue Wound Edges: Well Defined Site Odor: None Site Measurement - Head-to-Toe Length X Width X Depth (cm): 0.5 cm saulo x 0.3 Pressure Injury Stage: Stage 2, Deep Tissue Injury (DTI) (Small Stage 2 surrounded by diffuse DTI) Pressure Injury Present on Admit: Yes Skin Integrity Problem Comment: Deep Tissue Injury surrounding a stage 2 injury , which appears as a de-roofed blister. Visualized w/JOSEFA Doe. Re-secured existing intact Allevyn dressing, and repositioned patient onto left side for pressure redistribution. Right Elbow Pressure Injury Dressing Type: Allevyn Life Dressing Description: Clean/Dry, Intact Integumentary Issue Intervention: Visualized Under Dressing Ada Wound Tissue: Erythema, Non-blanching Ada Wound Swelling: Mild Wound Bed Color: Red Site Measurement - Head-to-Toe Length X Width X Depth (cm): 5 cm saulo x 0 Pressure Injury Stage: Stage 1 Pressure Injury Present on Admit: Yes Skin Integrity Problem Comment: Erythema at intact site. Re-secured clean/dry/ intact Allevyn dressing. JOSEFA Doe present, assisting.
[2016-10-14] MEDS: D5W 1/2 NS W/ 20 KCl/L 1,000 ML IV SCH (21:22)
[2016-10-15] MEDS: ALBUTEROL 3 ML DEYVIAL IH SCH ×4 (04:39→21:25)
[2016-10-15 06:11] LABS: INR 1.57 (0.83-1.16); PROTIME(PATIENT) 18.8 SEC (12.0-15.0)
[2016-10-15 06:30] LABS: ALANINE AMINOTRANSFERASE 46 IU/L (21-72); ALBUMIN 2.2 g/dL (3.5-5.0); ALKALINE PHOSPHATASE 64 IU/L (38-126); ANION GAP 4 mEq/L (8-16); ASPARTATE AMINOTRANSFERASE 59 IU/L (17-59); BILIRUBIN,TOTAL 3.8 mg/dL (0.1-1.4); CALCIUM 7.1 mg/dL (8.5-10.4); CARBON DIOXIDE 26 mEq/l (22-31); CHLORIDE 114 mEq/L (97-110); CREATININE 0.5 mg/dL (0.7-1.3); GLOMERULAR FILTRATION RATE > 60; GLUCOSE 117 mg/dL (70-100); POTASSIUM 3.9 mEq/L (3.5-5.2); SODIUM 144 mEq/L (134-144); TOTAL PROTEIN 5.2 g/dL (6.3-8.2)
[2016-10-15 06:37] LABS: BILIRUBIN-UNCONJUGATED 2.8 mg/dL (0.0-1.1)
[2016-10-15] MEDS: D5W 1/2 NS W/ 20 KCl/L 1,000 ML IV SCH (07:30)
--- NOTE | 2016-10-15 08:04 | DX ---
Portable Chest, 5:57 History: Cerebral infarction Comparison: October 13 Findings: There are new bilateral pleural effusions. It is difficult to exclude underlying consolidat ion. The pulmonary vascularity is plethoric. Median sternotomy wires, an aortic valve replacement an d dense calcification of the mitral valve ring remain. EKG leads overlie the chest. Impression: Suspect CHF.
--- NOTE | 2016-10-15 09:55 | NEUROPROG ---
Assessment: Today's visit was predominantly counseling and review of management with family. He has had a large stroke, but he has had some significant improvement in last 24 hrs. We are giving them all of the options and explaining that outcome cannot be determined at this stage. Permanent disability is likely, but how severe cannot be determined yet. I spent 30 minutes Subjective: Pt case reviewed. He is much better today but unable to communicate due to aphasia Objective: Vital Signs Temp Pulse Resp BP Pulse Ox 37.2 C 70 24 H 125/57 H 95 10/15/16 06:00 10/15/16 06:00 10/15/16 06:00 10/15/16 06:00 10/15/16 06:00 Laboratory Results 10/14/16 04:20 10/15/16 05:45 10/14/16 10/15/16 10/16/16 05:59 05:59 05:59 Intake Total 3750 3110 Output Total 350 700 Balance 3400 2410 PT 18.8 SEC (12.0-15.0) H 10/15/16 05:45 INR 1.57 (0.83-1.16) H 10/15/16 05:45 Awake and variable comprehension with not consistently following commands. He has a global aphasia, but he is trying to speak and has nonsensical words. There is right side weakness in the 4/5 range. Allergies/Adverse Reactions: doxazosin mesylate [From Cardura] Allergy (Verified 10/13/16 19:44) PALPITATIONS Sulfa (Sulfonamide Antibiotics) Allergy (Verified 10/13/16 19:44) GI UPSET zolpidem tartrate [From Ambien] Allergy (Verified 11/18/12 10:19) RASH/HIVES
--- NOTE | 2016-10-15 15:01 | HOSPPROG ---
Hospitalist Progress Note Assessment/Plan: DIAGNOSIS: # ACUTE ISCHEMIC CVA # INTRACRANIAL HEMORRHAGIC CONVERSION # CHRONIC STABLE A FIB ON COUMADIN - NOW OFF COUMADIN DUE TO BLEED # RHABDOMYOLYSIS FROM BEING DOWN ON FLOOR - MILD # MULTIPLE STAGE I DECUBITUS SORES FROM BEING DOWN AT HOME # WENCKEBACH TYPE 2 HEART BLOCK It remains difficult to determine detention prognosis due to uncertain timing or original severity of his stroke at home. Also he is clearly better today than yesterday but it is unclear why he became unresponsive yesterday. PLANS: -PT OT ST -continue nurse monitoring -no full-dose anticoagulation at this time due to stroke with intracranial hemorrhage -close attention to blood pressure control -Check lipid panel -NPO with IV hydration for now I reviewed this patient's case in detail today with Dr. Uziel Jarrett, and also seen on multidisciplinary rounds today. 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 Exam: Now wide awake, follows commands, attempts to speak but speech very dysarthric He does move all extremities with good strength. skin warm dry color ok resps not labored lungs clear BSs heart regular abd soft nondistended nontender, bowel sounds present limbs warm, no edema iv site ok Objective: Vital Signs Temp Pulse Resp BP Pulse Ox 37.0 C 73 18 120/45 L 97 10/15/16 08:00 10/15/16 12:00 10/15/16 12:00 10/15/16 12:00 10/15/16 12:00 Laboratory Results 10/14/16 04:20 10/15/16 05:45 10/14/16 10/15/16 10/16/16 06:59 06:59 06:59 Intake Total 3750 3110 Output Total 350 700 Balance 3400 2410 PT 18.8 SEC (12.0-15.0) H 10/15/16 05:45 INR 1.57 (0.83-1.16) H 10/15/16 05:45 ICD10 Worksheet Patient Problems: Problems Problem Status Diagnosed Aspiration pneumonia Acute CVA (cerebral vascular accident) Acute Elevated troponin Acute Rhabdomyolysis Acute
--- NOTE | 2016-10-15 15:33 | PDPCPN ---
Palliative Care Progress Note Assessment/Plan: Referring provider: Dr Jimenez Reason for consult: Complex medical decision making Symptom control HPI: James Elias is a 80 yo male with PMH a fib, AVR, and CAD admitted to the hospital after being found down at home. Unknown how long he was down but likely for 3-4 days. Family could not get ahold of him and called police to preform a welfare check. On admission ct head with left MCA subacute infarct likely ischemic in nature with hemorrhagic stroke. With rhabdo on admission now improved with IV fluids. Mental status very poor up until today when he began to wake up more and follow commands. Palliative care consulted for complex medical decision making. Spoke with Denise PELAEZ, Chalo Montgomery Cheryl, Omayra social work case manager, and Tiffany tesfaye outside of the room. The family shared that James was an independent person prior to hospitalization able to take care of all of his own needs. They frequently called daily to check in on him but was relatively healthy prior. They did notice some increasing social isolation and memory loss since the of his second 3 years ago. They had been trying to have him move closer to family in the past 6 months but he was hesitant to move anywhere as he thought "he was near the end of his life and it didn't make sense to move". The family feels James would have preferred just to have on the floor at his home. He has a living will that states he would want medical interventions for 7 days before deciding to transition to comfort care. They have seen him improve quite a bit over the past 24 hours and now are not sure what exactly he would want. They feel he would want rehab to see how much he can improve as he has never wanted to be completely dependent in a long term. His living will also states he would want artificial nutrition for 7 days before withdrawing that. Discussed options including trying rehab to see how much he improves but can also consider comfort care only at anypoint in time. They are looking at rehab's closer to family in [place], [place]. Assessment: Physical: - Pain: monitor for non verbal s/s of pain - tylenol PRN - Dysphagia: - speech involved - would want temporary artificial nutrition if needed Emotional/psychological: at baseline with some memory loss and social isolation per family Advanced Care Planning: Is patient decisional?: No Code Status: DNR MD ANGEL: CHANDNI Walker is MDPOA. Plan: Pursuing rehab potentially in [facility]. Ongoing discussions about future goals as needed. The family is clear James would not want to live in a permanent completely dependent state. Subjective: able to state some words but not making sense Objective: Social History: Second 3 years ago. Has children who all live out of state except 1 in [place]. Worked at [employer] Medication list reviewed ROS: General: fatigue, weakness ENT: dysphagia Resp: negative GI: negative : negative MS: negative Skin: negative Neuro: right sided weakness, aphasia Psych: confusion at times Functional assessment: PPS: 30% Functional status: dependent on ADLs, IADLs Vital Signs Temp Pulse Resp BP Pulse Ox 37.0 C 73 18 120/45 L 97 10/15/16 08:00 10/15/16 12:00 10/15/16 12:00 10/15/16 12:00 10/15/16 12:00 Laboratory Results 10/14/16 04:20 10/15/16 05:45 10/14/16 10/15/16 10/16/16 05:59 05:59 05:59 Intake Total 3750 3110 Output Total 350 700 Balance 3400 2410 PT 18.8 SEC (12.0-15.0) H 10/15/16 05:45 INR 1.57 (0.83-1.16) H 10/15/16 05:45 Physical Exam - Physical Exam General Appearance: alert, no apparent distress Respiratory: No respiratory distress, No accessory muscle use Skin: normal color, warm/dry Extremities: No pedal edema Neuro/Psych: other (speech mumbled) ICD10 Worksheet Patient Problems: Problems Problem Status Diagnosed Aspiration pneumonia Acute CVA (cerebral vascular accident) Acute Elevated troponin Acute Palliative care encounter Acute Rhabdomyolysis Acute - ICD10 Problem Qualifiers (1) Palliative care encounter
[2016-10-15] MEDS: ERTAPENEM 1 GM in NS 100 ML IV SCH (21:58)
[2016-10-16] MEDS: ALBUTEROL 3 ML DEYVIAL IH SCH (05:24)
[2016-10-16] MEDS: D5W 1/2 NS W/ 20 KCl/L 1,000 ML IV SCH ×2 (10:29→20:17)
--- NOTE | 2016-10-16 12:18 | HOSPPROG ---
Hospitalist Progress Note Assessment/Plan: DIAGNOSIS: # ACUTE ISCHEMIC CVA / expressive aphasia, some partial R weakness, dysphagia # INTRACRANIAL HEMORRHAGIC CONVERSION # CHRONIC STABLE A FIB ON COUMADIN - NOW OFF COUMADIN DUE TO BLEED # RHABDOMYOLYSIS FROM BEING DOWN ON FLOOR - MILD # MULTIPLE STAGE I DECUBITUS SORES FROM BEING DOWN AT HOME # WENCKE[place]ACH TYPE 2 HEART BLOCK It remains difficult to determine snf prognosis due to uncertain timing or original severity of his stroke at home. However he is certainly now 3-5 days out and still w significant deficits. He is seen by speech therapy who currently is recommending that we limit him to 1 on 1 feedings of small amounts of puree, and medicines crushed in the puree food. Family will be following and making decisions about whether not feeding tube should be used should he not progress to more significant swallowing. He does have a set of signs document stating that he would limit artificial feeding to 7 days if unresponsive. PLANS: -PT OT ST -continue radiation monitor -no full dose anticoagulation at this time due to stroke with intracranial hemorrhage conversion -close attention to blood pressure control -can move out of ICU -inpatient rehab evaluation I reviewed this patient's case in detail today with Dr. Leodan Carias and Uziel Jarrett, and also seen on multidisciplinary rounds today. SUBJECTIVE: Very difficult to assess sxs due to communication OBJECTIVE Vitals reviewed: Stable without fever radiation monitor, my personal review: Sinus rhythm with intermittent Wenckebach type 2 heart block, Exam: wide awake, follows commands, attempts to speak but speech very dysarthric (no change from yesterday) He does move all extremities with good strength. skin warm dry color ok resps not labored lungs clear BSs heart regular abd soft nondistended nontender, bowel sounds present limbs warm, no edema iv site ok Objective: Vital Signs Temp Pulse Resp BP Pulse Ox 37 C 65 18 116/53 L 99 10/16/16 12:00 10/16/16 12:00 10/16/16 12:00 10/16/16 12:00 10/16/16 12:00 Laboratory Results 10/14/16 04:20 10/15/16 05:45 10/15/16 10/16/16 10/17/16 06:59 06:59 06:59 Intake Total 3110 635 Output Total 700 900 250 Balance 2410 -265 -250 PT 18.8 SEC (12.0-15.0) H 10/15/16 05:45 INR 1.57 (0.83-1.16) H 10/15/16 05:45 ICD10 Worksheet Patient Problems: Problems Problem Status Diagnosed Aspiration pneumonia Acute CVA (cerebral vascular accident) Acute Elevated troponin Acute Palliative care encounter Acute Rhabdomyolysis Acute
[2016-10-16] MEDS: METOPROLOL TARTRATE 25 MG TAB PO SCH ×2 (14:22→20:17)
[2016-10-16] MEDS: ATORVASTATIN CALCIUM 40 MG TAB PO SCH (14:22)
[2016-10-16] MEDS: ERTAPENEM 1 GM in NS 100 ML IV SCH (20:17)
--- NOTE | 2016-10-17 08:00 | NEUROPROG ---
Assessment: New patient has experienced stroke with hemorrhage and continued expressive aphasia and mild right shyam paresis. He has certainly stabilized and may continue to have gradual improvements. The goal is inpatient rehab if possible , but I have not heard whether he qualifies yet and explained this to his daughter. Hopefully, we will know something about this over the next 24 hours so disposition can be established as soon as possible. Subjective: Patient remains unable to communicate effectively, but is still able to follow some instructions. He tries to speak but has mostly unintelligible words. There is no evidence that he is in pain. There have not been clear exacerbating or alleviating factors for the expressive aphasia. His daughter says that she has not noticed much improvement in the last 24 hours but sometimes understands a few words. He has just started to try to consume puree level items but very limited oral intake. No fever or chills. Objective: Vital Signs Temp Pulse Resp BP Pulse Ox 36.4 C 60 19 127/74 H 93 10/17/16 04:00 10/17/16 04:00 10/17/16 04:00 10/17/16 04:00 10/17/16 04:00 Laboratory Results 10/14/16 04:20 10/15/16 05:45 10/16/16 10/17/16 10/18/16 05:59 05:59 05:59 Intake Total 635 1340 Output Total 900 1200 Balance -265 140 PT 18.8 SEC (12.0-15.0) H 10/15/16 05:45 INR 1.57 (0.83-1.16) H 10/15/16 05:45 The patient continues to have an expressive aphasia and some comprehension difficulty, although he was able to follow some of my commands today. There is mild right shyam paresis. Pupils are 3 mm and reactive. Extraocular movements are intact. Language impairment prevents ability to assess true orientation or any level of insight. He seems to recognize touch in all the extremities. Cardiac exam regular rate and rhythm. Allergies/Adverse Reactions: doxazosin mesylate [From Cardura] Allergy (Verified 10/13/16 19:44) PALPITATIONS Sulfa (Sulfonamide Antibiotics) Allergy (Verified 10/13/16 19:44) GI UPSET zolpidem tartrate [From Ambien] Allergy (Verified 11/18/12 10:19) RASH/HIVES
[2016-10-17] MEDS: METOPROLOL TARTRATE 25 MG TAB PO SCH ×2 (08:45→21:45)
[2016-10-17] MEDS: ATORVASTATIN CALCIUM 40 MG TAB PO SCH (08:45)
--- NOTE | 2016-10-17 08:57 | HOSPPROG ---
Hospitalist Progress Note Assessment/Plan: 80-year-old male presents to the emergency room after being found down. This is my 1st encounter with the patient, chart reviewed. # ACUTE ISCHEMIC CVA / expressive aphasia, some partial R weakness, dysphagia Will need rehab Continue supportive care Significant deficits # INTRACRANIAL HEMORRHAGIC CONVERSION Appears stable # CHRONIC STABLE A FIB ON COUMADIN - NOW OFF COUMADIN DUE TO BLEED Continues to be in AFib Rate controlled # RHABDOMYOLYSIS FROM BEING DOWN ON FLOOR - MILD Resolved # MULTIPLE STAGE I DECUBITUS SORES FROM BEING DOWN AT HOME Continue wound care # WENCKEBACH TYPE 2 HEART BLOCK Continue to follow determine if patient requires a feeding tube. He would limit artificial feeding to 7 days if unresponsive per documents. PLANS: -PT OT ST -continue suede brusher -no full dose anticoagulation at this time due to stroke with intracranial hemorrhage conversion -close attention to blood pressure control -inpatient rehab evaluation Subjective: Family at the bedside. Patient with minimal verbal interaction. Cooperating. Objective: Vital Signs Temp Pulse Resp BP Pulse Ox 37.0 C 67 19 131/73 H 90 L 10/17/16 07:59 10/17/16 08:45 10/17/16 07:59 10/17/16 08:45 10/17/16 07:59 Laboratory Results 10/14/16 04:20 10/15/16 05:45 10/16/16 10/17/16 10/18/16 05:59 05:59 05:59 Intake Total 635 1340 Output Total 900 1200 Balance -265 140 PT 18.8 SEC (12.0-15.0) H 10/15/16 05:45 INR 1.57 (0.83-1.16) H 10/15/16 05:45 - Physical Exam Constitutional: no apparent distress, appears nourished, not in pain Eyes: PERRL, anicteric sclera, EOMI Ears, Nose, Mouth, Throat: moist mucous membranes, hearing normal, ears appear normal Cardiovascular: irregularly irregular, No JVD, No edema Respiratory: no respiratory distress, no rales or rhonchi, reduced air movement Gastrointestinal: No tenderness, No ascites, No guarding Skin: warm, normal color, pressure ulcer, No erythema Musculoskeletal: no joint effusions, generalized weakness, No joint tenderness Neurologic: weakness Psychiatric: not anxious, poor insight, poor judgement, poor memory ICD10 Worksheet Patient Problems: Problems Problem Status Diagnosed Aspiration pneumonia Acute CVA (cerebral vascular accident) Acute Elevated troponin Acute Palliative care encounter Acute Rhabdomyolysis Acute
[2016-10-17] MEDS: D5W 1/2 NS W/ 20 KCl/L 1,000 ML IV SCH (09:32)
[2016-10-17] MEDS ORDERED: POLYETHYLENE GLYCOL 3350 17 GM PKT PO PRN (10:23)
[2016-10-17] MEDS ORDERED: BISACODYL 10 MG SUPP PR PRN (10:23)
[2016-10-17] MEDS ORDERED: LACTULOSE 20 GM/30 ML UDCUP PO PRN (10:23)
[2016-10-17] MEDS ORDERED: MAGNESIUM HYDROXIDE 30 ML UDCUP PO PRN (10:23)
[2016-10-17] MEDS: SENNOSIDES/DOCUSATE SODIUM TAB PO SCH (21:45)
[2016-10-17] MEDS: ERTAPENEM 1 GM in NS 100 ML IV SCH (21:46)
[2016-10-18] MEDS: ATORVASTATIN CALCIUM 40 MG TAB PO SCH (09:51)
[2016-10-18] MEDS: METOPROLOL TARTRATE 25 MG TAB PO SCH (09:52)
[2016-10-18] MEDS: SENNOSIDES/DOCUSATE SODIUM TAB PO SCH ×2 (09:52→19:55)
--- NOTE | 2016-10-18 12:57 | WOCRNPDOC ---
WOCRN Advanced Assessment Note - Skin Integrity Problem, Advanced Assess Coccyx Pressure Injury Dressing Type: Allevyn Life Site Measurement - Head-to-Toe Length X Width X Depth (cm): 1.5x0.5x0 Pressure Injury Stage: Stage 1 Right Hip Pressure Injury Dressing Type: Allevyn Life Integumentary Issue Intervention: Visualized Under Dressing Wound Bed Color: Barnard Wound Bed Constitution: Smooth Tissue Wound Edges: Epithelizing Site Measurement - Head-to-Toe Length X Width X Depth (cm): 1.5x1.5x0.1 Pressure Injury Stage: Stage 2 Skin Integrity Problem Comment: healing. No concerns. Will follow up in one week. Right Elbow Pressure Injury Dressing Type: Open to Air Wound Bed Constitution: Healed Left Ear Pressure Injury Dressing Type: Open to Air Site Measurement - Head-to-Toe Length X Width X Depth (cm): 0.3x0.2x0 Pressure Injury Stage: Stage 1, Watch Inspector Related Pressure Injury Pressure Injury Present on Admit: No
--- NOTE | 2016-10-18 16:02 | HOSPPROG ---
Hospitalist Progress Note Assessment/Plan: 80-year-old male presents to the emergency room after being found down. # ACUTE ISCHEMIC CVA / expressive aphasia, some partial R weakness, dysphagia Will need rehab Continue supportive care Significant deficits # acute encephalopathy New today Improved throughout the day Continue to monitor Family does not want aggressive intervention # INTRACRANIAL HEMORRHAGIC CONVERSION Appears stable # CHRONIC STABLE A FIB ON COUMADIN - NOW OFF COUMADIN DUE TO BLEED Continues to be in AFib Rate controlled # bradycardia Family does not want cardiology consult No aggressive intervention Continue supportive care # RHABDOMYOLYSIS FROM BEING DOWN ON FLOOR - MILD Resolved # MULTIPLE STAGE I DECUBITUS SORES FROM BEING DOWN AT HOME Continue wound care # WENCKEBACH TYPE 2 HEART BLOCK Again family does not want aggressive intervention No Cardiology consult Reviewed with son Continue to follow determine if patient requires a feeding tube. He would limit artificial feeding to 7 days if unresponsive per documents. PLANS: -PT OT ST -continue cardiac rn -no full dose anticoagulation at this time due to stroke with intracranial hemorrhage conversion -close attention to blood pressure control -will need intermediate facility rehabilitation Possible transfer to [place] [facility] Subjective: Patient with minimal interaction to aggressive stimuli. Does not open eyes. Objective: Vital Signs Temp Pulse Resp BP Pulse Ox 35.9 C L 53 L 18 132/64 H 92 10/18/16 15:49 10/18/16 15:49 10/18/16 15:49 10/18/16 15:49 10/18/16 15:49 Laboratory Results 10/14/16 04:20 10/15/16 05:45 10/17/16 10/18/16 10/19/16 05:59 05:59 05:59 Intake Total 1340 20 Output Total 1200 650 Balance 140 -630 PT 18.8 SEC (12.0-15.0) H 10/15/16 05:45 INR 1.57 (0.83-1.16) H 10/15/16 05:45 - Physical Exam Constitutional: appears nourished, not in pain, chronically ill appearing Eyes: PERRL, anicteric sclera, other (no opening) Ears, Nose, Mouth, Throat: moist mucous membranes, ears appear normal, No oral thrush Cardiovascular: edema, No JVD, No tachycardia Respiratory: no respiratory distress, no rales or rhonchi, reduced air movement Gastrointestinal: No tenderness, No ascites, No guarding Skin: warm, normal color, pressure ulcer Musculoskeletal: no joint effusions, generalized weakness, No joint tenderness Neurologic: No AAOx3 Psychiatric: encephalopathic, No interacting appropriately, No thought process linear ICD10 Worksheet Patient Problems: Problems Problem Status Diagnosed Aspiration pneumonia Acute CVA (cerebral vascular accident) Acute Elevated troponin Acute Palliative care encounter Acute Rhabdomyolysis Acute
--- NOTE | 2016-10-18 18:14 | DX ---
Portable Chest 17:53 History: Follow-up pneumonia Comparison: October 15, 2016 Findings: There is little if any change in a right pleural effusion. I suspect there is some improvem ent in the left pleural effusion. Little if any change in dense left retrocardiac density. Pulmonary vascular plethora and cardiomegaly remain. Impression: Likely some improvement in the left pleural fluid. Otherwise little if any change.
--- NOTE | 2016-10-18 19:36 | HOSPPROG ---
Hospitalist Progress Note Assessment/Plan: Contacted by RN that patient has bradycardia, worsening mentation (arousable to tactile stimulation), and some hypoxia. - CXR w/o worsening air space disease - RN d/w family, they elect for comfort measures now - DC tele, OCCUPATIONAL ANALYST order placed - no labs or HCT b/c of above Objective: Vital Signs Temp Pulse Resp BP Pulse Ox 35.9 C L 53 L 18 132/64 H 92 10/18/16 15:49 10/18/16 15:49 10/18/16 15:49 10/18/16 15:49 10/18/16 15:49 Laboratory Results 10/14/16 04:20 10/15/16 05:45 10/17/16 10/18/16 10/19/16 05:59 05:59 05:59 Intake Total 1340 20 Output Total 1200 650 300 Balance 140 -630 -300 PT 18.8 SEC (12.0-15.0) H 10/15/16 05:45 INR 1.57 (0.83-1.16) H 10/15/16 05:45 ICD10 Worksheet Patient Problems: Problems Problem Status Diagnosed Aspiration pneumonia Acute CVA (cerebral vascular accident) Acute Elevated troponin Acute Palliative care encounter Acute Rhabdomyolysis Acute
[2016-10-18] MEDS: D5W 1/2 NS W/ 20 KCl/L 1,000 ML IV SCH (22:31)
[2016-10-19 04:59] LABS: % IMMATURE GRANULYOCYTES 0.2 % (0.0-1.1); ABSOLUTE IMMATURE GRANULOCYTES 0.01 10^3/uL (0.00-0.10); ADD DIFF? NO; ADD MORPH? NO; ADD SCAN? NO; ATYPICAL LYMPHOCYTE FLAG 20 (0-99); FRAGMENT RBC FLAG 0 (0-99); HEMATOCRIT 46.4 % (40.0-51.0); HEMOGLOBIN 15.4 g/dL (13.7-17.5); LEFT SHIFT FLG 0 (0-99); LIPEMIA HEMOLYSIS FLAG 80 (0-99); MEAN CELL HEMOGLOBIN 33.4 pg (27.9-34.1); MEAN CELL HEMOGLOBIN CONCENTR. 33.2 g/dL (32.4-36.7); MEAN CELL VOLUME 100.7 fL (81.5-99.8); MEAN PLATELET VOLUME 11.1 fL (8.7-11.7); PLATELET CLUMPS FLAG 0 (0-99); PLATELET COUNT 83 10^3/uL (150-400); RED BLOOD CELL COUNT 4.61 10^6/uL (4.40-6.38); RED CELL DISTRIBUTION WIDTH 14.8 % (11.5-15.2)
[2016-10-19 05:03] LABS: ALANINE AMINOTRANSFERASE 44 IU/L (21-72); ALBUMIN 2.2 g/dL (3.5-5.0); ALKALINE PHOSPHATASE 88 IU/L (38-126); ANION GAP 8 mEq/L (8-16); ASPARTATE AMINOTRANSFERASE 43 IU/L (17-59); BILIRUBIN,TOTAL 3.1 mg/dL (0.1-1.4); CARBON DIOXIDE 26 mEq/l (22-31); CHLORIDE 110 mEq/L (97-110); CREATININE 0.6 mg/dL (0.7-1.3); GLOMERULAR FILTRATION RATE > 60; GLUCOSE 103 mg/dL (70-100); POTASSIUM 3.7 mEq/L (3.5-5.2); SODIUM 144 mEq/L (134-144); TOTAL PROTEIN 5.5 g/dL (6.3-8.2)
[2016-10-19 05:10] LABS: BILIRUBIN-CONJUGATED 0.8 mg/dL (0.0-0.5); BILIRUBIN-UNCONJUGATED 2.3 mg/dL (0.0-1.1)
[2016-10-19 08:39] VITALS: BP 124/59; PULSE 60; RESP 22; TEMP 97.4; O2SAT 90
--- NOTE | 2016-10-19 10:21 | PDIAF ---
- Diagnosis Diagnosis: CVA Code Status: Do Not Resuscitate - Medication Management Discharge Medications: Medications to Continue on Transfer Atorvastatin Calcium [Lipitor 40 mg (*)] 40 mg PO DAILY 10/13/16 [Last Taken Unknown] Sennosides/Docusate Sodium [Senokot-S] 1 - 2 tab PO BID #0 tab 10/19/16 [Last Taken Unknown] Discharge Medications: Refer to the Discharge Home Medication list for PRN reason. PICC Care - Routine: N/A - Orders Services needed: Registered Nurse, Physical Therapy, Occupational Therapy, Speech Language Pathologist Diet Texture: Dysphagia 1 - Pureed, Honey Thick Liquids, Meds Crushed in Puree - Follow Up Care Current Providers and Referrals: NONE *PRIMARY CARE P,. [Primary Care Provider] -
[2016-10-19] MEDS: ATORVASTATIN CALCIUM 40 MG TAB PO SCH (10:44)
[2016-10-19] MEDS: SENNOSIDES/DOCUSATE SODIUM TAB PO SCH (10:44)
--- NOTE | 2016-10-20 04:33 | GDS ---
[f rep st] DISCHARGE SUMMARY DISCHARGE DIAGNOSES: 1. Cerebrovascular accident. 2. Acute encephalopathy. 3. Intracranial hemorrhagic conversion. 4. Chronic stable atrial fibrillation. 5. Bradycardia. 6. Rhabdomyolysis. 7. Decubitus ulcers. 8. Wenckebach type 2 heart block. STUDIES AND PROCEDURES DONE: 1. CT of the cervical spine. 2. CT of the head. 3. Echocardiogram. 4. Palliative care. CONSULTATIONS: 1. Dr. Villegas of Neurosurgery. 2. Dr. Jimenez. 3. Dr. Kenneth Hercules of Neurology. PHYSICAL EXAMINATION: GENERAL: The patient is alert. VITAL SIGNS: Afebrile 36.3, pulse is 60, res piratory rate 22, blood pressure is 124/59, he is saturating 90% on room air. I have seen and evalua kirsten the patient on the day of discharge. HOSPITAL COURSE: The patient is an 80-year-old male who was brought to the emergency room after dante torres found down he was evaluated and diagnosed with. 1. Acute ischemic stroke. During this hospitalization he received a consultation from Neurology as well as Neurosurgery with thorough evaluation of his underlying stroke. He does suffer from expressi ve aphasia as well, some right partial weakness and dysphagia. He received therapies during this hos pitalization and will continue to require rehabilitation. 2. Acute encephalopathy. This has been intermittent during the patient's hospital course. Today at the day of discharge he does not suffer and any encephalopathy but he does continue to suffer from h is expressive aphasia. 3. Intracranial hemorrhagic conversion. This appears to be stable with anticoagulation not recommen ded in the future. Rate controlled off Coumadin therapy with no recommendations to reinitiate in the future. 4. Bradycardia. This is ongoing and the family does not wish to have any aggressive intervention pe rformed. 5. Rhabdomyolysis. This has resolved. 6. Decubitus ulcers. These will continue to require wound care. DISPOSITION: The patient will be discharged to [facility] for further rehabilitation. There are no pending studies. DISCHARGE MEDICATIONS: Please refer to EMR form. The patient's Coumadin has been discontinued as we ll as his Lopressor secondary to his bradycardia. After a lengthy discussion with the patient's family, he continues to be a do not resuscitate and do not return to the hospital. Further decisions regarding his long-term care will be made in the outpa tient setting at rehabilitation. I spent greater than 35 minutes in the care, coordination, and management of the patient's dispositio n. /[id number]/MODL
== END 2016-10-19 15:06 | DRG 64 ==
LOC: EDUNIT# → F2N 21:41 → F3N 10-16 17:55
PROVIDERS: ADMIT Internal Medicine; ATTEND Internal Medicine
PROC: 30233K1 Transfusion of Nonautologous Frozen Plasma into Peripheral Vein, Percutaneous Approach (ICD-10-PCS; principal; 2016-10-13)
DX: I63.412 Cerebral infarction due to embolism of left middle cerebral artery (principal); G93.49 Other encephalopathy; M62.82 Rhabdomyolysis; I62.9 Nontraumatic intracranial hemorrhage, unspecified; G81.91 Hemiplegia, unspecified affecting right dominant side; I48.2 Chronic atrial fibrillation; I10 Essential (primary) hypertension; E11.9 Type 2 diabetes mellitus without complications; E78.5 Hyperlipidemia, unspecified; G47.33 Obstructive sleep apnea (adult) (pediatric); L89.151 Pressure ulcer of sacral region, stage 1; L89.212 Pressure ulcer of right hip, stage 2; L89.011 Pressure ulcer of right elbow, stage 1; R47.01 Aphasia; I44.1 Atrioventricular block, second degree; R00.1 Bradycardia, unspecified; Z95.1 Presence of aortocoronary bypass graft; Z95.3 Presence of xenogenic heart valve; Z79.01 Long term (current) use of anticoagulants
CPT/HCPCS: 82947-QW; 92526-GN; 92610-GN; 97112-GP; 97162-GP; 97167-GO; 97530-GO; 97530-GP; 97535-GO; G8978-GP-CM; G8979-GP-CJ; G8987-GO-CL; G8988-GO-CK; G8989-GO-CM; G8996-GN-CL; G8997-GN-CK; J1335; J3430; P9017